=== PATIENT | male | born 1965 | race Caucasian/White ===

== ENCOUNTER 2018-08-22 13:49 | Emergency (ER) | payer BC ==
--- NOTE | 2018-08-22 14:23 | RADIOLOGY REPORT (SQ) ---
EXAM DESCRIPTION: WRIST RIGHT 2 VIEWS COMPLETED DATE/TIME: 08/22/2018 2:09 pm REASON FOR STUDY: +deformity COMPARISON: None. NUMBER OF VIEWS: Three views. TECHNIQUE: AP, lateral, and oblique radiographic images acquired of the right wrist. LIMITATIONS: None. FINDINGS: MINERALIZATION: Normal. BONES: Comminuted displaced fracture distal radius with overriding of the fracture fragments. Extens ion into the adjacent articulating joint. Possible ulnar styloid fracture not well-defined. SOFT TISSUES: No soft tissue swelling. No foreign body. OTHER: No other significant finding. IMPRESSION: Comminuted displaced fracture of the distal radius with overriding of the fracture fragm ents and extension into the adjacent radiocarpal joint. Possible ulnar styloid fracture but not well -defined. TECHNICAL DOCUMENTATION: JOB ID: [id number] [employer]- All Rights Reserved Reading location - IP/workstation name: [email or web address]
[2018-08-22] MEDS ORDERED: MORPHINE SULFATE 10 MG/ML INJ IM ONE (14:50)
--- NOTE | 2018-08-22 14:53 | ER Document Report ---
ED Medical Screen (RME) - General Chief Complaint: Arm Pain Stated Complaint: RIGHT HAND INJURY Time Seen by Provider: 08/22/18 14:46 Primary Care Provider: MING FARNSWORTH [Primary Care Provider] - Follow up as needed Mode of Arrival: Wheelchair Information source: Patient Notes: Patient is a 53-year-old male presented to the emergency department chief complaint of right wrist injury. Patient reports he was working in the yard when he tripped and fell onto his outstretched hand. There is an obvious deformity noted. He does have a very strong radial pulse. He is able to move his fingers distal to the area of injury and he does have normal sensation. Vital signs are not available at the time of my initial evaluation of this patient at 1450. X-ray has been done and is resulted shows a comminuted displaced fracture of the distal radius with overriding of the fracture fragments. Extension into the adjacent articulating joint is noted possible ulnar styloid fracture not well defined. I have greeted and performed a rapid initial assessment of this patient. A comprehensive ED assessment and evaluation of the patient, analysis of test results and completion of the medical decision making process will be conducted by additional ED providers. I have specifically instructed the patient or family members with the patient to immediately return to any nursing staff should anything change in the patient's condition or with their chief complaint. This medical record was dictated with voice recognizing software. There may be grammatical, syntax errors that are unintended. TRAVEL OUTSIDE OF THE [place] IN LAST 30 DAYS: No - Related Data Allergies/Adverse Reactions: No Known Allergies Allergy (Verified 08/22/18 13:53) Past Medical History - Social History Chew tobacco use (# tins/day): Yes Frequency of alcohol use: None Endocrine Medical History: Reports: Hx Diabetes Mellitus Type 2 Renal/ Medical History: Denies: Hx Peritoneal Dialysis Doctor's Discharge - Discharge Referrals: MING FARNSWORTH [Primary Care Provider] - Follow up as needed
[2018-08-22] MEDS ORDERED: FENTANYL CITRATE INJ/PF 100 MCG/2 ML AMPUL IV ONE ×2 (15:04→18:05)
[2018-08-22] MEDS ORDERED: NORMAL SALINE 1000 ML 1,000 ML IV ONE (15:04)
--- NOTE | 2018-08-22 15:51 | ER Document Report ---
ED Extremity Problem, Upper - General Mode of Arrival: Wheelchair Information source: Patient TRAVEL OUTSIDE OF THE [place] IN LAST 30 DAYS: No - HPI Patient complains to provider of: Right, Wrist Onset: Just prior to arrival Recent injury: Yes Where: Outdoors Quality of pain: Sharp Severity of pain: Persistent Pain Level: 5 Context: Fall Associated symptoms: Other - Right wrist pain. denies: Nausea, Neck pain Exacerbated by: Movement Similar symptoms previously: No Recently seen / treated by doctor: No <VANDANA SMYTH - Last Filed: 08/22/18 20:23> <CATY VAZQUEZ - Last Filed: 08/22/18 20:54> - General Chief Complaint: Arm Pain Stated Complaint: RIGHT HAND INJURY Time Seen by Provider: 08/22/18 14:46 Primary Care Provider: [facility] [Provider Group] - Follow up as needed KENDY MAYA MD [ASSOCIATE] - Follow up tomorrow Notes: Patient states that he was outside tripped over a rock and fell onto outstretched right hand today. Patient is right-hand dominant. Patient denies any other injury. Patient with positive deformity to right wrist with pain. Patient without any nausea or vomiting. 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 denies: Chest pain, Dizziness, Lightheaded Respiratory: No symptoms reported. denies: Cough, Short of breath Gastrointestinal: No symptoms reported. denies: Nausea, Vomiting Genitourinary: No symptoms reported Male Genitourinary: No symptoms reported Musculoskeletal: Joint pain - Right wrist pain. denies: Back pain Skin: No symptoms reported Hematologic/Lymphatic: No symptoms reported Neurological/Psychological: No symptoms reported. denies: Lost consciousness <VANDANA SMYTH - Last Filed: 08/22/18 20:23> Physical Exam - General General appearance: Alert In distress: Mild - HEENT Head: Normocephalic, Atraumatic Eyes: Normal Conjunctiva: Normal Nasal: Normal Mouth/Lips: Normal Mucous membranes: Normal Neck: Normal, Supple - Respiratory Respiratory status: No respiratory distress Chest status: Nontender Breath sounds: Normal Chest palpation: Normal - Cardiovascular Rhythm: Regular Heart sounds: S1 appreciated, S2 appreciated Murmur: No Pulses: Normal: Radial - Back Back: Normal, Nontender - Extremities General upper extremity: Tender - r wrist deformity, edema, tenderness General lower extremity: Normal inspection, Normal ROM Shoulder: Normal, Nontender Arm: Normal, Nontender Elbow: Normal, Nontender Forearm: Normal, Nontender Wrist: Tender - Right wrist tenderness, deformity over distal radius and ulna, Deformity, Ecchymosis, Instability, Limited ROM Hand: Normal, Nontender - Neurological Neuro grossly intact: Yes Cognition: Normal Simone Coma Scale Eye Opening: Spontaneous Simone Coma Scale Verbal: Oriented Simone Coma Scale Motor: Obeys Commands Wilson Coma Scale Total: 15 - Psychological Associated symptoms: Normal affect, Normal mood - Skin Skin Temperature: Warm Skin Moisture: Dry Skin Color: Normal <VANDANA SMYTH - Last Filed: 08/22/18 20:23> - Vital signs Vitals: Temp Pulse Resp BP Pulse Ox 98.4 F 102 H 18 101/63 98 08/22/18 14:54 08/22/18 14:54 08/22/18 14:54 08/22/18 14:54 08/22/18 14:54 Course - Diagnostic Test Radiology reviewed: Image reviewed, Reports reviewed <[email or web address] - Last Filed: 08/22/18 20:23> <CATY VAZQUEZ - Last Filed: 08/22/18 20:54> - Re-evaluation Re-evalutation: 08/22/18 15:[address] vazquez who recommends consultation with the orthopedics. Call placed loader operator supervisor for consultation with Dr. Maya. 08/22/18 18:21 Dr. Vazquez to bedside for reduction. Patient consciously sedated per Dr. Vazquez with propofol and fentanyl. Patient was placed in finger traps with gentle traction applied. Fracture was reduced and volar splint was placed. Postreduction films were reviewed, patient with improvement of displacement. Patient with good capillary refill less than 3 seconds. (VANDANA SMYTH) 08/22/18 20:51 53-year-old male [id number] presents after a trip and fall just prior to arrival. Patient has an obvious deformity on exam. PHYSICAL EXAMINATION: GENERAL: Well-appearing, well-nourished and in no acute distress. HEAD: Atraumatic, normocephalic. EYES: Pupils equal round and reactive to light, extraocular movements intact, sclera anicteric, conjunctiva are normal. ENT: Nares patent, oropharynx clear without exudates. Moist mucous membranes. NECK: Normal range of motion, supple without lymphadenopathy LUNGS: Breath sounds clear to auscultation bilaterally and equal. No wheezes rales or rhonchi. HEART: Regular rate and rhythm without murmurs ABDOMEN: Soft, nontender, nondistended abdomen. No guarding, no rebound. No masses appreciated. Musculoskeletal: Significant deformity of the right wrist. Associated ecchymosis, swelling. Ulnar and radial pulse intact. NEUROLOGICAL: Cranial nerves grossly intact. Normal speech, normal gait. Normal sensory, motor exams PSYCH: Normal mood, normal affect. SKIN: Warm, Dry, normal turgor, no rashes or lesions noted. (CATY VAZQUEZ) - Vital Signs Vital signs: Temp Pulse Resp BP Pulse Ox 98.2 F 102 H 15 121/74 97 08/22/18 19:05 08/22/18 14:54 08/22/18 19:04 08/22/18 19:05 08/22/18 19:04 Procedures - Immobilization Right Wrist Pre-Proc Neuro Vasc Exam: Normal Immobilizer type: Volar splint Performed by: Provider assisted Post-Proc Neuro Vasc Exam: Unchanged from pre-exam Alignment checked and good: Yes <VANDANA SMYTH - Last Filed: 08/22/18 20:23> - Conscious Sedation Conscious sedation Time started: 18:20 Time completed: 19:00 Consent obtained: Yes Prior complications: Procedural sedation Normal healthy pt.: P1. - ASA Classification Airway Evaluation: Large tongue Mallampati Classification: Class 3 Used during procedure: Suction available, IV access obtained, Pulse ox on pt., yard assistant on pt. Medications administered: Fentanyl, Diprivan Reversal agents: None I personally performed/intraservice time: Sedation, 31-45 min Complications: No - Immobilization Right Wrist Time completed: 16:20 Pre-Proc Neuro Vasc Exam: Normal Immobilizer type: Volar splint Alignment checked and good: Yes <VAZQUEZCATY - Last Filed: 08/22/18 20:54> Discharge <HAJAVANDANA - Last Filed: 08/22/18 20:23> <VAZQUEZCATY Tinoco - Last Filed: 08/22/18 20:54> - Discharge Clinical Impression: Closed fracture distal radius and ulna Qualifiers: Encounter type: initial encounter Laterality: right Qualified Code(s): S52.501A - Unspecified fracture of the lower end of right radius, initial encounter for closed fracture Condition: Stable Disposition: HOME, SELF-CARE Instructions: Fractured Radius and Ulna ([facility]), Ice & Elevation ([facility]), Oral Narcotic Medication ([facility]), Splint Precautions ([facility]) Additional Instructions: Return immediately for any new or worsening symptoms such as increased pain, change in color of fingers, altered capillary refill of fingers or any concerning symptoms. Follow-up with orthopedics for further evaluation. This injury will require surgical repair. Call orthopedic office tomorrow and let them know that Dr. Maya had been consulted and advised outpatient follow-up for surgical repair. Prescriptions: Naproxen [Naprosyn 250 Nmg Tablet] 1 tab PO BID #14 tablet Oxycodone HCl/Acetaminophen [Percocet 5-325 mg Tablet] 1 tab PO ASDIR PRN #20 tablet PRN Reason: Forms: Return to Work Referrals: [facility] [Provider Group] - Follow up as needed KENDY MAYA MD [ASSOCIATE] - Follow up tomorrow
[2018-08-22] MEDS ORDERED: MORPHINE SULFATE 10 MG/ML INJ IV ONE (15:52)
[2018-08-22] MEDS ORDERED: ONDANSETRON HCL INJ/PF 4 MG/2 ML SDV IV ONE (16:07)
[2018-08-22] MEDS ORDERED: PROPOFOL INJ 200 MG/20 ML VIAL IV ONE ×2 (17:27→18:20)
--- NOTE | 2018-08-22 18:49 | RADIOLOGY REPORT (SQ) ---
EXAM DESCRIPTION: WRIST RIGHT 2 VIEWS COMPLETED DATE/TIME: 08/22/2018 6:24 pm REASON FOR STUDY: post reduction COMPARISON: Earlier exam EXAM PARAMETERS: NUMBER OF VIEWS: Two view. TECHNIQUE: AP and lateral radiographic images acquired of the right wrist. LIMITATIONS: None. FINDINGS: Comminuted distal radius fracture shows more anatomic alignment, persistent impaction and dorsal displacement 4 mm. . OTHER: No other significant finding. IMPRESSION: Comminuted distal radius fracture shows more anatomic alignment, persistent impaction an d dorsal displacement 4 mm. TECHNICAL DOCUMENTATION: JOB ID: [id number] [employer]- All Rights Reserved Reading location - IP/workstation name: [email or web address]
[2018-08-22 19:17] VITALS: BP 121/74
== END 2018-08-22 19:05 | disposition home or self-care (01) ==
LOC: ER 13:49
DX: S52.501A Unspecified fracture of the lower end of right radius, initial encounter for closed fracture (principal); S69.91XA Unspecified injury of right wrist, hand and finger(s), initial encounter; W01.0XXA Fall on same level from slipping, tripping and stumbling without subsequent striking against object, initial encounter; E11.9 Type 2 diabetes mellitus without complications
CPT/HCPCS: 96376; 99283; 96361; 99152; 96374; 96375; 73100; 25605; J3010; J2270; J2405; J7030; J2704

== ENCOUNTER 2018-08-24 11:00 | Day surgery (SDC) | payer BC ==
[~2018-08-24 11:00] MED LIST: CEFAZOLIN SODIUM 2 GM in DEXTROSE 5%-WATER 100 ML IV PRN; SUCCINYLCHOLINE CHLORIDE INJ 200 MG/10 ML VIAL ONE
[2018-08-24] MEDS ORDERED: FAMOTIDINE INJ/PF 20 MG/2 ML SDV IV ONE (11:49)
[2018-08-24] MEDS ORDERED: METOCLOPRAMIDE HCL INJ/PF 10 MG/2 ML SDV ONE (12:04)
[2018-08-24 12:51] LABS: ANION GAP 10 (5-19); BLOOD UREA NITROGEN 26 mg/dL (7-20); CARBON DIOXIDE 24 mmol/L (22-30); CHLORIDE 101 mmol/L (98-107); GLUCOSE 171 mg/dL (75-110); POTASSIUM 4.4 mmol/L (3.6-5.0); SODIUM 134.8 mmol/L (137-145)
--- NOTE | 2018-08-24 13:44 | EKG REPORT ---
SEVERITY:- NORMAL ECG - SINUS RHYTHM : Confirmed by: Rashawn Whalen MD 24-Aug-2018 13:43:28
[2018-08-24] MEDS ORDERED: MORPHINE SULFATE 10 MG/ML INJ ONE (14:02)
[2018-08-24] MEDS ORDERED: FENTANYL CITRATE INJ/PF 100 MCG/2 ML AMPUL ONE (14:02)
[2018-08-24] MEDS ORDERED: DEXAMETHASONE SOD PHOSPHATE INJ 4 MG/1 ML VIAL ONE (14:02)
[2018-08-24] MEDS ORDERED: MIDAZOLAM 2 MG/2 ML INJ ONE (14:02)
[2018-08-24] MEDS ORDERED: ONDANSETRON HCL INJ/PF 4 MG/2 ML SDV ONE (14:02)
[2018-08-24] MEDS ORDERED: PROPOFOL INJ 200 MG/20 ML VIAL IV ONE (14:03)
[2018-08-24] MEDS ORDERED: BUPIVACAINE HCL 0.25 % INJ/PF (2.5 MG/1 ML) 30 ML VIAL ONE (14:03)
[2018-08-24] MEDS ORDERED: MEPERIDINE HCL/PF INJ 25 MG/1 ML DISP.SYRIN IV PRN (14:50)
[2018-08-24] MEDS ORDERED: PROMETHAZINE HCL INJ 25 MG/1 ML VIAL IV PRN ×2 (14:50)
[2018-08-24] MEDS ORDERED: DIPHENHYDRAMINE HCL 50 MG/ML VIAL IV PRN (14:50)
[2018-08-24] MEDS ORDERED: MORPHINE SULFATE 10 MG/ML INJ IV PRN (14:50)
[2018-08-24] MEDS ORDERED: FENTANYL CITRATE INJ/PF 100 MCG/2 ML AMPUL IV PRN ×3 (14:50)
--- NOTE | 2018-08-24 18:30 | OPERATIVE REPORT E ---
Operative Report NAME: ESTRELLA KINGSLEY : 1965 AGE: 53Y DATE OF SURGERY: 08/24/2018 PREOPERATIVE DIAGNOSES: 1. Right comminuted intra-articular distal radius fracture. 2. Right acute carpal tunnel syndrome. POSTOPERATIVE DIAGNOSES: 1. Right greater than 3 parts comminuted intra-articular distal radius fracture. 2. Right acute carpal tunnel syndrome. OPERATION: 1. Open reduction, internal fixation, right comminuted distal radius fracture. 2. Brachioradialis tendon lengthening. 3. Operative carpal tunnel release, separate incision. SURGEON: KENDY ANTUNEZ M.D. ANESTHESIA: General. BLOOD LOSS: Minimal. COMPLICATIONS: None. INDICATIONS: The patient is a 53-year-old man who sustained a fall on his outstretched hand, resulting in a comminuted intra-articular fracture of the right distal radius with an associated with acute carpal tunnel syndrome. DESCRIPTION OF PROCEDURE: Following the induction of general anesthetic and administration of antibiotics, the patient was positioned supine on the operating room table. All bony prominences were padded. A tourniquet was placed proximally on the right arm but not inflated. The right upper extremity was sterilely prepped with ChloraPrep and draped in standard fashion. The arm was exsanguinated and the tourniquet inflated to 100 mm above systolic pressure. Extensile approach to the distal radius was performed. Sharp incision was performed on the volar radial forearm. Sharp dissection through skin, blunt dissection through the subcutaneous tissue. Care was taken to identify and protect the radial artery. The FCR tendon sheath was opened volarly and dorsally. Space of Parona opened bluntly. The pronator had already been torn off the distal radius and local fracture fragments were visualized. The remaining pronator was taken off in an L-shaped flap. Extended FCR approach was performed. The shaft of the radius was pronated out of the way, allowing articular reduction. The shaft was then supinated back. The fracture was anatomically aligned. Due to the severe comminution, trying to obtain reduction with a plate applied first to the shaft did not work as the metaphyseal segments continued to move in incorrect position, so, therefore, the plate was applied distally with multiple locking screws, and the plate was then applied to the proximal forearm with 3 screws, 1 nonlocking and 2 locking. Image intensification was brought in which demonstrated an anatomic reduction and correct placement of implant. In order to obtain reduction, particularly of his separate radial styloid fragment, the brachioradialis was lengthened in a Z flap. The wound was then copiously irrigated. Remnants of the pronator were repaired back to their insertion. Brachioradialis was repaired in its lengthened fashion. The subcutaneous tissue was closed with 2-0 Vicryl, skin reapproximated with 3-0 Monocryl suture. We next turned our attention to the carpal tunnel. A separate incision in the palm was made based distally on the maximally abducted thumb in line with the third/fourth digital interspace. Sharp incision was performed through skin and blunt dissection down to the transverse carpal ligament. The transverse carpal ligament was transected sharply. The musculature was retracted proximally and the forearm fascia opened distally with care taken to protect the palmar arch. The carpal tunnel was released distally past the palmar arch. Hematoma was expressed following this release, indicating that this was most likely the area of acute carpal tunnel symptomatology which was thereby released. The wound was copiously irrigated. The median nerve was palpated and was free throughout its length. The skin was then reapproximated side to side with monofilament suture, and 0.25% Marcaine was injected in both wounds for postoperative analgesia. A bulky sterile dressing and volar splint were applied. The patient tolerated the procedure well without complications and was brought to the recovery room in stable condition. DICTATING PHYSICIAN: KENDY ANTUNEZ M.D. [id number] PHY#: [id number] ID: [id number] JOB#: [id number] ACCT: [id number] cc:KENDY ANTUNEZ M.D. > MTDD
[2018-08-24] MEDS ORDERED: OXYCODONE-ACETAMINOPHEN 5-325 MG TABLET PO PRN (18:41)
[2018-08-24] MEDS ORDERED: ONDANSETRON HCL INJ/PF 4 MG/2 ML SDV IV PRN (18:42)
[2018-08-24 19:05] VITALS: BP 143/77
--- NOTE | 2018-08-25 10:46 | RADIOLOGY REPORT (SQ) ---
EXAM DESCRIPTION: WRIST RIGHT 2 VIEWS; NO CHG FLUORO COMPLETED DATE/TIME: 08/24/2018 6:48 pm REASON FOR STUDY: ORIF RIGHT WRIST S52.571A OTH INTARTIC FRACTURE OF LOWER END OF RIGHT RADIUS, S52 .611A DISP FX OF RIGHT ULNA STYLOID PROCESS, INIT FOR SHAYLA G56.01 CARPAL TUNNEL SYNDROME, RIGHT UPPE R LIMB COMPARISON: 08/22/2018. FLUOROSCOPY TIME: 44 seconds. 4 images saved to PACS. TECHNIQUE: Intra-operative images acquired during surgical procedure to evaluate progress. NUMBER OF IMAGES: 4 images. LIMITATIONS: None. FINDINGS: Images acquired during surgical fixation of the fracture of the distal radius. IMPRESSION: IMAGE(S) OBTAINED DURING PROCEDURE. COMMENT: Quality ID [id number]: Final reports for procedures using fluoroscopy that document radiation exp osure indices, or exposure time and number of fluorographic images (if radiation exposure indices are not available) Please consult full operative report of the attending physician for description of the procedure. TECHNICAL DOCUMENTATION: JOB ID: [id number] [employer]- All Rights Reserved Reading location - IP/workstation name: [email or web address]
--- NOTE | 2018-08-25 10:46 | RADIOLOGY REPORT (SQ) ---
EXAM DESCRIPTION: WRIST RIGHT 2 VIEWS; NO CHG FLUORO COMPLETED DATE/TIME: 08/24/2018 6:48 pm REASON FOR STUDY: ORIF RIGHT WRIST S52.571A OTH INTARTIC FRACTURE OF LOWER END OF RIGHT RADIUS, S52 .611A DISP FX OF RIGHT ULNA STYLOID PROCESS, INIT FOR SHAYLA G56.01 CARPAL TUNNEL SYNDROME, RIGHT UPPE R LIMB COMPARISON: 08/22/2018. FLUOROSCOPY TIME: 44 seconds. 4 images saved to PACS. TECHNIQUE: Intra-operative images acquired during surgical procedure to evaluate progress. NUMBER OF IMAGES: 4 images. LIMITATIONS: None. FINDINGS: Images acquired during surgical fixation of the fracture of the distal radius. IMPRESSION: IMAGE(S) OBTAINED DURING PROCEDURE. COMMENT: Quality ID [id number]: Final reports for procedures using fluoroscopy that document radiation exp osure indices, or exposure time and number of fluorographic images (if radiation exposure indices are not available) Please consult full operative report of the attending physician for description of the procedure. TECHNICAL DOCUMENTATION: JOB ID: [id number] [email or web address]- All Rights Reserved Reading location - IP/workstation name: [email or web address]
== END 2018-08-24 19:12 | disposition home or self-care (01) ==
LOC: OROUT 11:00
PROVIDERS: ATTEND Orthopaedic Surgery
DX: S52.571A Other intraarticular fracture of lower end of right radius, initial encounter for closed fracture (principal); S52.611A Displaced fracture of right ulna styloid process, initial encounter for closed fracture; W19.XXXA Unspecified fall, initial encounter; G56.01 Carpal tunnel syndrome, right upper limb; E11.9 Type 2 diabetes mellitus without complications; E66.9 Obesity, unspecified; Z79.84 Long term (current) use of oral hypoglycemic drugs; Z79.82 Long term (current) use of aspirin; Z79.899 Other long term (current) drug therapy
CPT/HCPCS: 36415; 80048; 73100; 93005; 93010; 01830; 25609; 25280; 64721; J2250; J0690; J1100; J3010; J2765; J2270; J0330; J2405; J7060; J2704; S0028